=== PATIENT | female | born 1945 | race Caucasian/White ===

== ENCOUNTER 2018-09-14 11:50 | Emergency (ER) | payer MEDICARE ==
[~2018-09-14] VITALS: Ht 152.4 cm; Wt 90.9 kg
[2018-09-14] MEDS ORDERED: CALC500C16 PO (12:05)
[2018-09-14] MEDS ORDERED: NAPR220C14 PO (12:05)
[2018-09-14] MEDS ORDERED: FISH1000 PO (12:05)
[2018-09-14] MEDS ORDERED: IBUP-1022 PO (12:05)
[2018-09-14] MEDS ORDERED: CHLO4TAB PO (12:05)
[2018-09-14] MEDS ORDERED: D-3-50003 PO (12:05)
[2018-09-14] MEDS ORDERED: MAGN1CAP PO (12:05)
[2018-09-14] MEDS ORDERED: METF-839 PO (12:05)
[2018-09-14] MEDS ORDERED: NORCO, ANEXSIA 5/325MG TABLET (HYDROcodone/ACETAMINOPHEN) PO ONE (12:30)
--- NOTE | 2018-09-14 12:49 | REP ---
Clinical: Trauma. Technique: AP, lateral, bilateral oblique views left wrist . Findings: The carpal bones, surrounding osseous structures, soft tissues, and joint spaces are normal. There is no evidence for acute fracture or dislocation. No subcutaneous emphysema or radiodense foreign body. Impression: No obvious acute fracture or dislocation Electronically Signed by Mark Charles MD 09/14/2018 12:41 P
--- NOTE | 2018-09-14 12:51 | REP ---
Clinical: Trauma. Technique: Frontal view of the chest with multiple views of the right hemithorax. Findings: Frontal view of the chest demonstrates no acute cardiopulmonary process. Multiple views of the right hemithorax demonstrates no obvious acute rib fracture or pathology. Impression: No obvious acute rib fracture. Electronically Signed by Mark Charles MD 09/14/2018 12:43 P
[2018-09-14] MEDS ORDERED: NORC1TAB7 PO (13:09)
[2018-09-14] MEDS ORDERED: ONDA4TAB6 PO (13:09)
[2018-09-14] MEDS ORDERED: ONDANSETRON 4 MG ORAL DISINTEGRATING TAB (Q0162 PER 1MG) PO ONE (13:15)
[2018-09-14 13:19] VITALS: BP 146/70
== END 2018-09-14 13:20 | disposition home or self-care (01) ==
LOC: M ED 11:50
DX: S20.211A Contusion of right front wall of thorax, initial encounter (principal); S69.92XA Unspecified injury of left wrist, hand and finger(s), initial encounter; W19.XXXA Unspecified fall, initial encounter; Y92.410 Unspecified street and highway as the place of occurrence of the external cause; Y93.9 Activity, unspecified; Y99.9 Unspecified external cause status; E11.9 Type 2 diabetes mellitus without complications; Z79.84 Long term (current) use of oral hypoglycemic drugs; Z79.899 Other long term (current) drug therapy; Z91.018 Allergy to other foods; Z91.040 Latex allergy status; Z88.0 Allergy status to penicillin
CPT/HCPCS: 71101; 73110; 99284; Q0162